=== PATIENT | male | born 1950 | race Caucasian/White ===

== ENCOUNTER 2023-12-20 17:15 | Emergency (ER) | payer BC ==
[~2023-12-20] VITALS: Ht 165.1 cm; Wt 66.0 kg
[2023-12-20 17:22] VITALS: BP 125/65; PULSE 66; RESP 20; TEMP 98.3; O2SAT 98
== END 2023-12-20 17:37 | disposition left against medical advice (07) ==
LOC: ER 17:15
DX: E11.649 Type 2 diabetes mellitus with hypoglycemia without coma (principal)
CPT/HCPCS: 99283